=== PATIENT | female | born 1980 | race Caucasian/White ===

== ENCOUNTER 2016-06-07 05:45 | Inpatient (IN) | payer OTHER ==
[2016-06-07 06:57] VITALS: BMI 27.2
[2016-06-07] MEDS ORDERED: DEXTROSE 5%-LACTATED RINGERS 1,000 ML IV SCH (07:00)
[2016-06-07 07:07] LABS: BASOPHIL 0.2 % (0-2.0); EOSINOPHIL 0.2 % (0-4.5); MCH 30.5 pg (25.7-33.7); MCHC 33.7 g/dl (32.0-36.0); MEAN CELL VOLUME 90.4 fl (80-96); MEAN PLT VOLUME 10.5 fl (7.5-11.1); NEUTROPHILS 86.8 % (42.8-82.8); PLATELET COUNT 162 K/MM3 (134-434); WHITE BLOOD COUNT 12.8 K/mm3 (4.0-10.0)
[2016-06-07 07:46] LABS: INR 0.97 (0.82-1.09); PROTHROMBIN TIME (PATIENT) 10.7 SEC (9.98-11.88)
[2016-06-07 07:49] LABS: ACTIVATED PTT 28.6 SECONDS (26.9-34.4)
[2016-06-07 07:51] LABS: CALCIUM 8.4 mg/dL (8.5-10.1); CREATININE 0.4 mg/dL (0.55-1.02)
--- NOTE | 2016-06-07 07:59 | HP ---
Past Medical History - Primary Care Physician PCP:: Miya Jesus - Admission Chief Complaint: 35 yrs 40 weeks c/o onset Lp since 1.00AM & SROM SINCE 2.30 AM History of Present Illness: PNC at [facility]. . wt gain 19 lbs work up : O pos, Rpr nr, Rubella pos, Hbsag neg,Quantiferon neg,Pngt 130. Hiv neg, Pap Nilm, Ct/Gc neg, serial sono by MFM were growth were done 02/18/16 sono 24 .2 weeks reported Bilat ov cysts Rt 5x5.2cm, Lt side 3.7x6 cm .. Small lleft inferior 2.3x3.2 cm myoma 05/18/16 37.1 sono Dory Lo 7.78, BPP 11/28 weekly f/u done on 05/23 & 05/30 sono 38.6 weeks, DORY 8.13cm.EFW 6'13' , she is followed by nst & Bpp weekly History Source: Patient, Medical Record Limitations to Obtaining History: No Limitations - Past Medical History SOCIAL WORK ASSISTANT: No: CVA, Migraine, Seizure Cardiovascular: No: HTN, Murmur Pulmonary: No: Asthma Renal/: No: UTI ...: 1 ...Para: 0 ...LMP: 09/01/15 ... Weeks Gestation by Dates: 40 ...EDC by Sono: 06/07/16 Heme/Onc: No: Anemia Infectious Disease: No: STD's Psych: No: Addictions, Anxiety, Depression Endocrine: No: Diabetes Mellitus, Hyperthyroidism, Hypothyroidism - Past Surgical History Past Surgical History: Yes: None Hx Myomectomy: No Hx Transabdominal Cerclage: No - Smoking History Smoking history: Never smoked - Alcohol/Substance Use Hx Alcohol Use: No History of Substance Use: reports: None Home Medications - Allergies Allergies/Adverse Reactions: Allergies Allergy/AdvReac Type Severity Reaction Status Date / Time No Known Allergies Allergy Verified 05/18/16 10:51 - Home Medications Home Medications: Ambulatory Orders Ferrous Gluconate [Iron] 256 mg PO BID 05/18/16 Pnv95/Ferrous Fumarate/FA [ Caplet] 1 each PO DAILY 05/18/16 Physical Exam - Maternity Vital Signs: Vital Signs Temperature 98.6 F 06/07/16 07:00 Pulse Rate 95 H 06/07/16 07:00 Respiratory Rate 20 06/07/16 07:00 Blood Pressure 122/76 06/07/16 07:00 O2 Sat by Pulse Oximetry (%) Constitutional: Yes: Well Nourished, No Distress, Calm Eyes: Yes: WNL HENT: Yes: WNL, Normocephalic Neck: Yes: WNL Cardiovascular: Yes: WNL Lungs: Clear to auscultation Breast(s): Yes: WNL - Abdominal Exam/OB Fundal Height: 40 Number of Fetuses: Single Presentation: Vertex Contractions: Yes Regularity: Irregular (3-4 min) Intensity: Mild Monitor Mode: External Heart Rate (range): 140 Heart Rate Location: [facility] Category: I Accelerations: Uniform Decelerations: Variable - Vaginal Exam/OB Vaginal Bleediing: Bloody Show Speculum Exam: No Dilatation (cm): 1 Effacement (%): 60 Amniotic Membrane Status: Ruptured Nitrazine Test: Positive Presentation: Vertex/Position Station: -3 - Physical Exam Musculoskeletal: Yes: WNL Extremities: Yes: WNL. No: Calf Tenderness Edema: Yes Edema: LLE: 1+, RLE: 1+ Integumentary: Yes: WNL Deep Tendon Reflex Grade: Normal +2 ...Motor Strength: WNL Psychiatric: Yes: WNL, Alert, Oriented - Labs Lab Results: CBC, BMP 06/07/16 06:40 Laboratory Tests 06/07/16 06/07/16 06:40 06:40 INR 0.97 PTT (Actin FS) 28.6 Sodium 136 Potassium 3.9 Chloride 103 Carbon Dioxide 20 L BUN 7 Creatinine 0.4 L Random Glucose 96 Calcium 8.4 L Problem List - Problems (1) 40 weeks gestation of Code(s): Z3A.40 - 40 WEEKS GESTATION OF (2) PROM (premature rupture of membranes) Code(s): O42.90 - JAROD ROM, 7TH0 BETW RUPT & ONST LABR, UNSP WEEKS OF GEST Qualifiers: PROM onset of labor timing: onset of labor within 24 hours of rupture Assessment/Plan 35 yrs 40 weeks, prom , early labor Plan expectat mamagement . 10.00 am labor management was transferred to Dr campoverde electronics instructor
--- NOTE | 2016-06-07 12:23 | PN ---
Ante-Partal Exam - Subjective Subjective: Feeling occasional contractions, overall comfortable. Vital Signs: Vital Signs Temperature 98.6 F 06/07/16 10:00 Pulse Rate 78 06/07/16 11:00 Respiratory Rate 18 06/07/16 11:00 Blood Pressure 131/80 06/07/16 11:00 O2 Sat by Pulse Oximetry (%) Bleeding: No Headache: No Visual changes: No Right upper quadrant pain: No - Contractions Contractions: Yes Regularity: Irregular Intensity: Mild/Mod Monitor Mode: External - Exam during Labor Heart Rate: 150 Variability: Moderate Category: I Monitor Accelerations: Absent Monitor Decelerations: None Dilatation (cm): 1.5 Effacement (%): 60 Amniotic Membrane Status: Ruptured Nitrazine Test: Positive Amniotic Fluid: Clear Presentation: Vertex Station: -3 Remarks: 35yo @40wks, PROM 230am. In latent labor. No signs or symptoms of chorio. GBS negative. status reassuring, cat 1 FHT. AF. VSS. Irregular contractions. -cervidil placed at 12:20pm -continue to monitor -anticipate
[2016-06-07] MEDS ORDERED: DINOPROSTONE 10 MG VAGINAL SUPPOSITORY VG ONE (12:30)
[2016-06-07] MEDS ORDERED: DEXTROSE 5%-LACTATED RINGERS 1,000 ML IV ONE (17:13)
[2016-06-07] MEDS ORDERED: AMPICILLIN - 100 ML IVPB ONE (20:00)
[2016-06-07] MEDS ORDERED: METHYLERGONOVINE MALEATE 0.2 MG/1 ML AMP IM PRN (22:12)
[2016-06-07] MEDS ORDERED: IBUPROFEN 600 MG TABLET (FP) PO PRN (22:12)
[2016-06-07] MEDS ORDERED: oxyCODONE HCL 5 MG TABLET PO PRN (22:12)
--- NOTE | 2016-06-07 22:12 | PN ---
Ante-Partal Exam - Subjective Vital Signs: Vital Signs Temperature 99.0 F 06/07/16 20:00 Pulse Rate 75 06/07/16 21:00 Respiratory Rate 18 06/07/16 21:00 Blood Pressure 141/79 06/07/16 21:00 O2 Sat by Pulse Oximetry (%) Bleeding: No Headache: No Visual changes: No Right upper quadrant pain: No - Contractions Contractions: No Regularity: Regular Intensity: Mild Monitor Mode: External - Exam during Labor Heart Rate: 150 Heart Rate Location: Midline Category: I Monitor Accelerations: Present Monitor Decelerations: Variable - Assessment/Plan Assessment/Plan: pt has been having variable decels. FHT shows minimal variability and will proceed with cs
[2016-06-07] MEDS ORDERED: OXYTOCIN 20 UNITS in 0.9% NS 1,000 ML IV SCH (22:15)
[2016-06-08] MEDS: AMPICILLIN - 100 ML IVPB SCH ×3 (02:11→09:33)
[2016-06-08] MEDS ORDERED: IBUPROFEN 800 MG/8 ML IJ IVPB PRN (02:35)
[2016-06-08 06:55] LABS: BASOPHIL 0.1 % (0-2.0); MCH 30.5 pg (25.7-33.7); MCHC 33.5 g/dl (32.0-36.0); MEAN CELL VOLUME 91.3 fl (80-96); MEAN PLT VOLUME 10.2 fl (7.5-11.1); NEUTROPHILS 90.1 % (42.8-82.8); PLATELET COUNT 139 K/MM3 (134-434); RDW 16.4 % (11.6-15.6); WHITE BLOOD COUNT 14.5 K/mm3 (4.0-10.0)
--- NOTE | 2016-06-08 07:08 | PN ---
Post Progress Note Post Day: 1 Type of Delivery: Primary C/S Vital Signs: Vital Signs Temperature 98.7 F 06/08/16 06:00 Pulse Rate 82 06/08/16 06:00 Respiratory Rate 18 06/08/16 06:00 Blood Pressure 114/70 06/08/16 06:00 O2 Sat by Pulse Oximetry (%) 98 06/07/16 23:45 Breast Exam: Yes: Soft Uterus: Yes: Fundus Firm Incision: Yes: Dressing dry and intact Abdomen/GI: Yes: Abdomen soft Lochia: Yes: Rubra Lochia, amount: Small Extremities: Yes: Calves non-tender Perineum: Yes: Intact Activity: Ambulating - Labs Labs: CBC WBC 12.8 K/mm3 (4.0-10.0) H 06/07/16 06:40 RBC 4.19 M/mm3 (3.60-5.2) 06/07/16 06:40 Hgb 12.8 GM/dL (10.7-15.3) 06/07/16 06:40 Hct 37.8 % (32.4-45.2) 06/07/16 06:40 MCV 90.4 fl (80-96) 06/07/16 06:40 MCHC 33.7 g/dl (32.0-36.0) 06/07/16 06:40 RDW 16.0 % (11.6-15.6) H 06/07/16 06:40 Plt Count 162 K/MM3 (134-434) 06/07/16 06:40 MPV 10.5 fl (7.5-11.1) 06/07/16 06:40 Neutrophils % 86.8 % (42.8-82.8) H 06/07/16 06:40 Lymphocytes % 7.4 % (8-40) L 06/07/16 06:40 Monocytes % 5.4 % (3.8-10.2) 06/07/16 06:40 Eosinophils % 0.2 % (0-4.5) 06/07/16 06:40 Basophils % 0.2 % (0-2.0) 06/07/16 06:40 Assessment/Plan oob reg diet check labs
--- NOTE | 2016-06-08 08:24 | PN ---
Progress Note (short form) - Note Progress Note: POD #1 - s/p under spinal anesthesia with duramorph. Pt. doing well, resting comfortably in bed. No complaints. Good pain control. No apparent anesthetic complications noted. Continue current care.
[2016-06-08] MEDS: SIMETHICONE 80 MG TAB.CHEW (FP) PO PRN (14:41)
[2016-06-08] MEDS: IBUPROFEN 600 MG TABLET (FP) PO PRN (14:41)
[2016-06-08] MEDS ORDERED: BISACODYL 10 MG SUPP.RECT RC PRN (22:12)
[2016-06-09] MEDS: SIMETHICONE 80 MG TAB.CHEW (FP) PO PRN (08:41)
[2016-06-09] MEDS: ACETAMINOPHEN 325 MG TABLET (FP) PO PRN (08:41)
[2016-06-09] MEDS: IBUPROFEN 600 MG TABLET (FP) PO PRN (08:43)
--- NOTE | 2016-06-09 09:37 | OP ---
DATE OF OPERATION: PREOPERATIVE DIAGNOSIS: A 35-year-old female with failed induction and nonreassuring heart tracing. POSTOPERATIVE DIAGNOSIS: A 35-year-old female with failed induction and nonreassuring heart tracing. PROCEDURE: Primary section. OPERATING SURGEON: Keya Dan MD DICE MANAGER: SONU Mancuso COMPLICATIONS: None. FINDINGS: Single live . Apgars of 8 and 9. Normal tubes, ovaries, and placenta. DESCRIPTION OF PROCEDURE: The patient was consented prior to entering the operating suite. The patient was put on the table in dorsal supine position, prepped and draped in the usual sterile fashion. Pfannenstiel incision was carried down to the level of the fascia. The fascia was then transected to the left and right of midline. The gravid uterus was then identified. A gush of amniotic fluid was then seen after transverse incision was made. The uterine incision was then spread bilaterally. The head was then delivered atraumatically through the incision as well as the body. The cord was then clamped and cut, and the was then handed off to awaiting internal grinder tender. The cord blood collection was then taken. The placenta had been removed. The inferior aspect of the uterus was cleaned with a semiwet lap pad. The uterus was then closed in a double layer of Biosyn suture. The right and left pericolic gutters were inspected. There was no gross bleeding identified. The peritoneum with the muscle was then approximated. The fascia was then closed. Skin morgan were applied. The patient was sent to the recovery room in stable, alert condition. KEYA DAN M.D. ANISA/[id number]
[2016-06-09] MEDS ORDERED: INFLUENZA VACCINE 60 MCG/0.5 ML (P/F DISP.SYRIN 16-17) IM ONE (10:00)
[2016-06-09] MEDS ORDERED: INFLUENZA VACCINE 45 MCG/0.5 ML (MDV 16-17) IM ONE (10:00)
--- NOTE | 2016-06-09 19:26 | PN ---
Progress Note (short form) - Note Progress Note: s/p c/s doing well .ambulating CBC, BMP 06/08/16 05:35 06/07/16 06:40 Last Vital Signs Temp Pulse Resp BP Pulse Ox 98.9 F 100 H 20 129/81 97 06/09/16 09:01 06/09/16 09:01 06/09/16 09:01 06/09/16 09:01 06/09/16 09:00 abdomen soft, no distension, no cva incision dry, clean no calf tenderness plan ambulate, monitor bp advance diet
[2016-06-10] MEDS: IBUPROFEN 600 MG TABLET (FP) PO PRN (07:44)
[2016-06-10] MEDS: ACETAMINOPHEN 325 MG TABLET (FP) PO PRN (07:45)
[2016-06-10] MEDS: SIMETHICONE 80 MG TAB.CHEW (FP) PO PRN (07:46)
[2016-06-10 08:31] LABS: BASOPHIL 0.2 % (0-2.0); EOSINOPHIL 0.7 % (0-4.5); MCH 30.5 pg (25.7-33.7); MCHC 33.7 g/dl (32.0-36.0); MEAN CELL VOLUME 90.7 fl (80-96); MEAN PLT VOLUME 9.3 fl (7.5-11.1); NEUTROPHILS 86.9 % (42.8-82.8); PLATELET COUNT 199 K/MM3 (134-434); WHITE BLOOD COUNT 10.5 K/mm3 (4.0-10.0)
--- NOTE | 2016-06-10 10:06 | PN ---
Post Progress Note - Subjective Subjective: Doing well, no complaints. Ambulating, tolerating PO, voiding, passing flatus, pain well controlled. Post Day: 3 Type of Delivery: Primary C/S Vital Signs: Vital Signs Temperature 98.7 F 06/10/16 07:40 Pulse Rate 83 06/10/16 07:40 Respiratory Rate 20 06/10/16 07:40 Blood Pressure 118/83 06/10/16 07:40 O2 Sat by Pulse Oximetry (%) 97 06/09/16 09:00 Breast Exam: Yes: Soft Uterus: Yes: Fundus Firm, Fundus below umbilicus Incision: Yes: Cha intact Abdomen/GI: Yes: Abdomen soft, Passing flatus Lochia: Yes: Rubra Lochia, amount: Small Extremities: Yes: Calves non-tender Perineum: Yes: Intact Activity: Ambulating - Labs Labs: CBC WBC 10.5 K/mm3 (4.0-10.0) H 06/10/16 08:00 RBC 3.25 M/mm3 (3.60-5.2) L 06/10/16 08:00 Hgb 9.9 GM/dL (10.7-15.3) L 06/10/16 08:00 Hct 29.5 % (32.4-45.2) L 06/10/16 08:00 MCV 90.7 fl (80-96) 06/10/16 08:00 MCHC 33.7 g/dl (32.0-36.0) 06/10/16 08:00 RDW 16.0 % (11.6-15.6) H 06/10/16 08:00 Plt Count 199 K/MM3 (134-434) D 06/10/16 08:00 MPV 9.3 fl (7.5-11.1) 06/10/16 08:00 Neutrophils % 86.9 % (42.8-82.8) H 06/10/16 08:00 Lymphocytes % 8.7 % (8-40) 06/10/16 08:00 Monocytes % 3.5 % (3.8-10.2) L 06/10/16 08:00 Eosinophils % 0.7 % (0-4.5) D 06/10/16 08:00 Basophils % 0.2 % (0-2.0) 06/10/16 08:00 Assessment/Plan 34P1 POD#3 s/p primary C/S. Doing well . VSS. AF. Hct stable -routine care -encourage ambulation -regular diet -PO pain medication -d/c home POD#4
--- NOTE | 2016-06-11 07:10 | PN ---
Post Progress Note - Subjective Subjective: Doing well, no complaints. Tolerating regular diet, voiding, ambulating, pain well controlled, passing flatus Post Day: 4 Type of Delivery: Primary C/S Vital Signs: Vital Signs Temperature 99 F 06/10/16 22:00 Pulse Rate 87 06/10/16 22:00 Respiratory Rate 18 06/10/16 22:00 Blood Pressure 135/79 06/10/16 22:00 O2 Sat by Pulse Oximetry (%) 97 06/09/16 09:00 Breast Exam: Yes: Soft Uterus: Yes: Fundus Firm, Fundus below umbilicus Incision: Yes: Other (morgan removed, steri strips placed) Abdomen/GI: Yes: Abdomen soft, Passing flatus, Tolerating PO Lochia: Yes: Rubra Lochia, amount: Small Extremities: Yes: Calves non-tender Perineum: Yes: Intact Activity: Ambulating - Labs Labs: CBC WBC 10.5 K/mm3 (4.0-10.0) H 06/10/16 08:00 RBC 3.25 M/mm3 (3.60-5.2) L 06/10/16 08:00 Hgb 9.9 GM/dL (10.7-15.3) L 06/10/16 08:00 Hct 29.5 % (32.4-45.2) L 06/10/16 08:00 MCV 90.7 fl (80-96) 06/10/16 08:00 MCHC 33.7 g/dl (32.0-36.0) 06/10/16 08:00 RDW 16.0 % (11.6-15.6) H 06/10/16 08:00 Plt Count 199 K/MM3 (134-434) D 06/10/16 08:00 MPV 9.3 fl (7.5-11.1) 06/10/16 08:00 Neutrophils % 86.9 % (42.8-82.8) H 06/10/16 08:00 Lymphocytes % 8.7 % (8-40) 06/10/16 08:00 Monocytes % 3.5 % (3.8-10.2) L 06/10/16 08:00 Eosinophils % 0.7 % (0-4.5) D 06/10/16 08:00 Basophils % 0.2 % (0-2.0) 06/10/16 08:00 Assessment/Plan 34P1 POD#4 s/p primary C/S. Doing well . VSS. AF. Hct stable. [place] removed. -routine care -encourage ambulation -regular diet -PO pain medication -d/c home today
[2016-06-11 09:37] VITALS: BP 136/78; PULSE 69; TEMP 99.5
--- NOTE | 2016-06-12 14:38 | PATH ---
Surgical Pathology Report Patient Name: LEAH LINDER [facility]. Rec. #: [id number] /Age/Gender: 1980 (Age: 35) / F Account: [id number] Location: [facility] OBS/PRINT GRAPHIC DESIGNER Taken: 06/07/2016 Received: 06/08/2016 Reported: 06/12/2016 Physicians: Miya Jesus M.D. Specimen(s) Received PLACENTA Clinical History 35-year-old , 40 weeks; uterine fibroid, bilateral ovarian cysts Primary for non-reassuring heart rate Final Diagnosis PLACENTA, DELIVERY: FOCALLY DISRUPTED THIRD TRIMESTER PLACENTA WITH MODERATE INCREASE IN PREVILLOUS, PERIVILLOUS, AND PRECHORIONIC FIBRIN DEPOSITION, FOCAL CALCIFICATIONS, THREE VESSEL UMBILICAL CORD WITH FOCAL ACUTE FUNISITIS, AND PLACENTAL MEMBRANES WITH FOCAL AMNION HYPERPLASIA AND MARKED ACUTE CHORIOAMNIONITIS AND ACUTE INFLAMMATION OF CHORIONIC PLATE. Electronically Signed Vivek Victor M.D. Gross Description The specimen is received fresh, labeled "placenta" and is a 551 gram, 16.5 x 15.0 x 4.0 cm placenta with attached membranes and umbilical cord. The attached membranes are dover, translucent with focal opacities and insert marginally. The umbilical cord measures 22 cm in length and averages 1 cm in diameter. The cord inserts eccentrically, 1 cm to the nearest margin. No true knots or strictures are identified. Cut surface of the umbilical cord reveals 3 vessels. The surface is baxter-blue with moderate fibrin deposition and appropriate caliber vessels. The maternal surface is red-brown with focal defects. Sectioning reveals red-brown, spongy parenchyma. No focal lesions are identified. Supervisor Display [employer]ation sections are submitted in three cassettes as follows: 1- membrane rolls and umbilical cord; 2-3- full thickness sections of placenta. 06/09/201606/09/2016
== END 2016-06-11 11:30 | disposition home or self-care (01) | DRG 540 ==
LOC: JDEL 05:45 → JLDR 05:46 → J3W 06-08 01:31
PROVIDERS: ADMIT Obstetrics & Gynecology; ATTEND Obstetrics & Gynecology
PROC: 10D00Z1 Extraction of Products of Conception, Low, Open Approach (ICD-10-PCS; principal; 2016-06-08)
PROC: 3E0P7GC Introduction of Other Therapeutic Substance into Female Reproductive, Via Natural or Artificial Opening (ICD-10-PCS; 2016-06-08)
DX: O76 Abnormality in fetal heart rate and rhythm complicating labor and delivery (principal); O62.0 Primary inadequate contractions; O42.02 Full-term premature rupture of membranes, onset of labor within 24 hours of rupture; O62.2 Other uterine inertia; Z3A.40 40 weeks gestation of pregnancy; Z37.0 Single live birth
CPT/HCPCS: 36415; 80048; 85025; 85610; 85730; 86593; 86850; 86900; 86901; 88307-TC; 90686; G0008

== ENCOUNTER 2017-07-14 12:00 | Emergency (ER) | payer OTHER ==
[2017-07-14 12:08] VITALS: TEMP 98.8; BMI 25.6
--- NOTE | 2017-07-14 12:22 | PDOC ---
History of Present Illness - General Chief Complaint: Vaginal Bleeding Stated Complaint: VAGINAL BLEEDING History Source: Patient Exam Limitations: No Limitations - History of Present Illness Initial Comments: This is a 36 YOF who is (11 wks today by LMP on 04/28/17, no OB care yet, no US yet) with h/o prior LTCS who presents with her c/o bright red vaginal bleeding for the past two days with a large dark red clot passage this morning. She took a home test about a month ago which was positive. This was a planned , and she never had bleeding in her prior which was otherwise uncomplicated. Other than the chief complaint, her only recent symptom is sore throat. She has not had any recent fever, chills, nausea , vomiting, diarrhea, constipation, headache, dizziness, lightheadedness, LOC, chest pain, palpitations, SOB, leg swelling, cloudy urine, other strange colors or smells to the urine, dysuria, or other symptoms. She believes that her blood type is O+. Past History - Past Medical History Allergies/Adverse Reactions: Allergies Allergy/AdvReac Type Severity Reaction Status Date / Time No Known Allergies Allergy Verified 07/14/17 12:08 Home Medications: Ambulatory Orders Ferrous Gluconate [Iron] 256 mg PO BID 05/18/16 Pnv95/Iron Fum/Folic Acid [ Caplet] 1 each PO DAILY 05/18/16 Ibuprofen [Motrin -] 600 mg PO QID #28 tablet 06/10/16 Asthma: No Cancer: No Cardiac Disorders: No COPD: No Diabetes: No HTN: No Seizures: No Thyroid Disease: No - Suicide/Smoking/Psychosocial Hx Smoking History: Never smoked Hx Alcohol Use: No Drug/Substance Use Hx: No Hx Substance Use Treatment: No Review of Systems - Review of Systems Able to Perform ROS?: Yes Constitutional: No: Chills, Fever, Unexplained wgt Loss HEENTM: No: Nose Congestion, Throat Pain Respiratory: No: Cough, Shortness of Breath Cardiac (ROS): No: Chest Pain, Edema, Palpitations ABD/GI: Yes: Other (mild lower abdominal pain). No: Constipated, Diarrhea, Nausea, Vomiting : Yes: Other (vaginal bleeding with clots). No: Burning, Dysuria Musculoskeletal: No: Back Pain, Neck Pain Integumentary: No: Bruising, Rash Neurological: No: Headache, Numbness, Seizure, Tingling, Weakness, Dizziness Endocrine: No: Unexplained Weight Gain, Unexplained Weight Loss *Physical Exam - Vital Signs Last Vital Signs Temp Pulse Resp BP Pulse Ox 98.8 F 87 18 148/68 99 07/14/17 12:05 07/14/17 12:05 07/14/17 12:05 07/14/17 12:05 07/14/17 12:05 - Physical Exam General Appearance: Yes: Nourished, Appropriately Dressed, Other (pleasant and very slightly anxious-appearing adult female accompanied by her , answering questions appropriately, primarily Ukrainian-speaking). No: Apparent Distress HEENT: positive: EOMI, Normal Voice, Hearing Grossly Normal. negative: Scleral Icterus (R), Scleral Icterus (L), Nasal Congestion Neck: positive: Trachea midline, Supple. negative: Tender, Rigid Respiratory/Chest: positive: Lungs Clear, Normal Breath Sounds. negative: Respiratory Distress, Crackles, Rhonchi, Stridor, Wheezing Cardiovascular: positive: Regular Rhythm, Regular Rate. negative: Murmur Female Pelvic Exam: positive: other (scant blood externally but otherwise normal external exam, moderate amount of medium-red blood in the vaginal vault, cervical os is slightly open and with a portion of a dark red clot protruding with thin white-colored membrane, no CMT or adnexal tenderness or palpable masses on bimanual exam) Gastrointestinal/Abdominal: positive: Normal Bowel Sounds, Soft. negative: Tender, Organomegaly, Pulsatile Mass, Guarding Musculoskeletal: positive: Normal Inspection. negative: Decreased Range of Motion, Vertebral Tenderness Extremity: positive: Normal Capillary Refill, Normal Inspection, Normal Range of Motion. negative: Tender, Cyanosis Integumentary: positive: Normal Color, Dry, Warm. negative: Erythema, Pale, Rash, Bruising Neurologic: positive: professional services manager II-XII NML intact (grossly), Fully Oriented, Alert, Normal Mood/Affect, Normal Response, Motor Strength 5/5. negative: Facial Droop , Numbness, Sensory Deficit, Confused, Disoriented ED Treatment Course - LABORATORY CBC & Chemistry Diagram: 07/14/17 12:50 07/14/17 12:50 Medical Decision Making - Medical Decision Making Female patient p/w vaginal bleeding with clots and suprapubic/pelvic pain. VS notable for: BP 148/68, otherwise wnl. Exam notable for: minimal diffuse suprapubic ttp, pelvic w/ moderate blood, small clot w/ white membrane protruding from slight open os. DDX IBNLT threatened , inevitable/incomplete/complete , ectopic , PID, TOA, ruptured ovarian cyst, hemorrhagic cystitis, menorrhagia, endometritis, cervicitis, endometriosis, constipation, fibroids, etc. There is also concern for gestational HTN/preeclampsia/eclampsia/HELLP syndrome given her blood pressure in triage. Ordered is CBCD CMP Mg Coags T&S UA UCx hCG Quant transvaginal US. Labs notable for: hCG 1890 (typical of 3-4 week gestation), no anemia, mild elevated ALT and AST, no proteinuria Blood type is: O+ US notable for: single IUP at 9 wks, no heart motion, bilateral complex ovarian cysts. On reassessment: patient remains nontender, calm, benign exam. Repeat VS: 07/14/17 14:49 Spoke with LOGGING ASSISTANT Dr. Gonzalez who recommends expectant management or (if the patient wants) Cytotec 800mg to help the process. Recommends warning the patient that she will have bleeding and should expect this. Patent will follow up in clinic - will call on Sunday morning. Patient is given Cytotec 800 mg PO. The patient does not require Rhogam. The patient is appropriate for discharge home w/ close outpatient f/u. The patient is comfortable with this plan. She will take Tylenol for pain. She will follow up with her regular doctor and LOGGING ASSISTANT in the next 1-3 days. Referral information given for Dr. Gonzalez. Return precautions are discussed. *DC/Admit/Observation/Transfer Diagnosis at time of Disposition: Inevitable , Complex ovarian cyst - Discharge Dispostion Disposition: HOME Condition at time of disposition: Stable Admit: No - Referrals Referrals: Mal Calderon [Primary Care Provider] - Katrin Gonzalez MD [Staff Physician] - - Patient Instructions Additional Instructions: You were seen in the ER for vaginal bleeding with clots. You also had high blood pressure when you arrived here in the ER which can be concerning in . We did an exam, laboratory work on your blood and urine, and an ultrasound, and we saw that there is no heart rate visible. This unfortunately means that you are having a miscarriage. We offered you a medication called Cytotec (misoprostol) to help the process. Please do not breast feed for 48 hours. We did not find any signs of a medical emergency to you yourself. You are safe to go home. There will be vaginal bleeding and cramping over the next few days. Please take Tylenol for any mild pain. Avoid Motrin (ibuprofen) because it can worsen the bleeding. Follow up with Dr. Gonzalez (the LOGGING ASSISTANT doctor ). We are providing referral information in this packet. Call their clinic [facility] , tell them you were seen in the ER, and tell them you need an appointment. Please come back to the ER at any time, 24 hours a day, for any new or worsening symptoms, like worsening pelvic pain, discharge, high fever, headache , seizure, fainting, anemia, large amount of blood loss, or other symptoms. If you are having symptoms that make it unsafe to drive, please call 911. - Post Discharge Activity
--- NOTE | 2017-07-14 12:39 | PDOC ---
Attending Attestation - Resident Resident Name: Cary Ahuja - ED Attending Attestation I have performed the following: I have examined & evaluated the patient, The case was reviewed & discussed with the resident, I agree w/resident's findings & plan, Exceptions are as noted - HPI HPI: 07/14/17 12:37 36y F hx of at 11 weeks by dates presents with vag bleeding x 2 days with clot passage this morning, minimal lower abd pain that is cramping, nonradiating without any exacerbation. Denies any dysuria, hematuria, fever/ chills, back pain, cp, sob, leg swelling, headache, dizziness.
[2017-07-14 12:57] LABS: BASO % 0.6 % (0-2.0); EOS % 1.5 % (0-4.5); HEMOGLOBIN 13.2 GM/dL (10.7-15.3); LYMPH % 22.1 % (8-40); MCH 29.8 pg (25.7-33.7); MCHC 33.9 g/dl (32.0-36.0); MEAN CELL VOLUME 87.9 fl (80-96); MEAN PLT VOLUME 10.3 fl (7.5-11.1); MONO % 5.7 % (3.8-10.2); NEUT % 70.1 % (42.8-82.8); PLATELET COUNT 191 K/MM3 (134-434); RBC 4.43 M/mm3 (3.60-5.2); RDW 14.2 % (11.6-15.6)
[2017-07-14 13:16] LABS: URINE APPEARANCE CLEAR; URINE BILIRUBIN NEGATIVE (<2.0 mg/dL); URINE BLOOD 3+ (NEGATIVE); URINE COLOR STRAW; URINE GLUCOSE (UA) NEGATIVE (NEGATIVE); URINE KETONE NEGATIVE (NEGATIVE); URINE LEUK ESTERASE NEGATIVE (NEGATIVE); URINE NITRITE NEGATIVE (NEGATIVE); URINE PROTEIN NEGATIVE (NEGATIVE); URINE UROBILINOGEN NEGATIVE mg/dL (0.2-1.0)
[2017-07-14 13:20] LABS: URINE BACTERIA RARE /hpf (NONE SEEN)
[2017-07-14 13:26] LABS: ANION GAP 12 (8-16); BILIRUBIN,TOTAL 0.4 mg/dL (0.2-1.0); BLOOD UREA NITROGEN 9 mg/dL (7-18); CHLORIDE 105 mmol/L (98-107); CO2 23 mmol/L (21-32); CREATININE 0.7 mg/dL (0.55-1.02); GLUCOSE,RANDOM 98 mg/dL (74-106); MAGNESIUM 2.5 mg/dL (1.8-2.4); PHOSPHOROUS 4.1 mg/dL (2.5-4.9); POTASSIUM 3.9 mmol/L (3.5-5.1); SGOT/AST 52 U/L (15-37); SGPT/ALT 88 U/L (12-78); SODIUM 140 mmol/L (136-145); TOT PROT 7.8 g/dl (6.4-8.2)
[2017-07-14 13:31] LABS: INR 0.98 (0.82-1.09); PROTHROMBIN TIME (PATIENT) 11.1 SEC (9.98-11.88)
[2017-07-14 13:34] LABS: ACTIVATED PTT 33.6 SECONDS (26.9-34.4)
[2017-07-14 13:41] LABS: ALK PHOS 106 U/L (45-117)
[2017-07-14] MEDS ORDERED: MISOPROSTOL 200 MCG TABLET PO STA (15:14)
[2017-07-14 15:45] VITALS: BP 143/78; PULSE 78
== END 2017-07-14 16:15 | disposition home or self-care (01) ==
LOC: JER 12:00
DX: O26.891 Other specified pregnancy related conditions, first trimester (principal); O20.0 Threatened abortion; O34.81 Maternal care for other abnormalities of pelvic organs, first trimester; N83.202 Unspecified ovarian cyst, left side; N83.201 Unspecified ovarian cyst, right side; Z3A.09 9 weeks gestation of pregnancy
CPT/HCPCS: 36415; 76817-TC; 80053; 81003; 81015; 83735; 84100; 84702; 85025; 85610; 85730; 86850; 86900; 86901; 87086; 99283-25